=== PATIENT | female | born 1945 | race Caucasian/White ===

== ENCOUNTER 2020-05-06 07:35 | Outpatient (REF) | payer MEDICARE, SELFPAY ==
[2020-05-06 10:36] LABS: Estimated Average Glucose 209 mg/dL; Hemoglobin A1c % 8.9 %
[2020-05-06 10:40] LABS: Alanine Aminotransferase 29 U/L (0-31); Albumin Level 4.2 g/dL (3.5-5.0); Alkaline Phosphatase 54 U/L (39-117); Anion Gap 15 (12-20); Aspartate Amino Transferase 22 U/L (5-31); Bilirubin Total 0.5 mg/dL (0.0-1.0); Blood Urea Nitrogen 26 mg/dL (9-16); Carbon Dioxide 25 mmol/L (22-29); Chloride 103 mmol/L (96-108); Estimated Glomerular Filt Rate 49; Glucose Fasting 249 mg/dL (60-99); Potassium 3.9 mmol/l (3.3-5.1); Sodium 139 mmol/L (135-145); Total Protein 6.5 g/dL (6.5-8.0)
== END 2020-05-06 07:36 | disposition home or self-care (01) ==
LOC: HO.10HDL 07:35
PROVIDERS: Visit Provider Internal Medicine
DX: I10 Essential (primary) hypertension (principal); E11.9 Type 2 diabetes mellitus without complications; E78.00 Pure hypercholesterolemia, unspecified
CPT/HCPCS: 80053; 83036

== ENCOUNTER 2020-06-06 13:04 | Outpatient (REF) | payer MEDICARE, SELFPAY ==
[2020-06-06 13:49] LABS: Glucose Random 219 mg/dL (60-115)
== END 2020-06-06 13:05 | disposition home or self-care (01) ==
LOC: HO.LAB 13:04
PROVIDERS: PCP Internal Medicine; Visit Provider Internal Medicine
DX: E11.9 Type 2 diabetes mellitus without complications (principal)
CPT/HCPCS: 82947

== ENCOUNTER 2020-09-15 07:32 | Outpatient (REF) | payer MEDICARE, SELFPAY ==
[2020-09-15 10:20] LABS: Glucose Urine UA NEG (NEG); Leukocyte Esterase Urine NEG (NEG); Nitrite Urine NEG (NEG); Urine Blood NEG (NEG); Urine Ketones NEG (NEG); Urine Protein NEG (NEG-TRACE)
[2020-09-15 10:25] LABS: Appearance Urine CLEAR; Color Urine YELLOW
[2020-09-15 10:28] LABS: Estimated Average Glucose 197 mg/dL; Hemoglobin A1c % 8.5 %
[2020-09-15 10:50] LABS: Alanine Aminotransferase 26 U/L (0-31); Albumin Level 4.3 g/dL (3.5-5.0); Alkaline Phosphatase 55 U/L (39-117); Anion Gap 15 (12-20); Aspartate Amino Transferase 21 U/L (5-31); Bilirubin Total 0.6 mg/dL (0.0-1.0); Blood Urea Nitrogen 27 mg/dL (9-16); Calcium 9.4 mg/dL (8.4-10.2); Carbon Dioxide 25 mmol/L (22-29); Chloride 101 mmol/L (96-108); Cholesterol 139 mg/dL; Estimated Glomerular Filt Rate 52; Glucose Fasting 269 mg/dL (60-99); HDL Cholesterol 42 mg/dL; LDL Cholesterol Calculated 65 mg/dl; Potassium 4.3 mmol/L (3.3-5.1); Sodium 137 mmol/L (135-145); Total Protein 6.6 g/dL (6.5-8.0); Triglycerides 161 mg/dL
[2020-09-15 11:13] LABS: Vitamin B12 396 pg/mL (200-900)
[2020-09-15 11:26] LABS: Creatinine Urine 89.67 mg/dL
== END 2020-09-15 07:33 | disposition home or self-care (01) ==
LOC: HO.10HDL 07:32
PROVIDERS: Visit Provider Internal Medicine
DX: I10 Essential (primary) hypertension (principal); E11.65 Type 2 diabetes mellitus with hyperglycemia; E78.00 Pure hypercholesterolemia, unspecified
CPT/HCPCS: 36415; 80053; 80061; 81003; 82043; 82607; 83036

== ENCOUNTER 2020-10-17 16:08 | Outpatient (REF) | payer MEDICARE, SELFPAY ==
--- NOTE | ~2020-10-17 | MM_ITS ---
EXAMINATION: MM SCREENING DIGITAL BREAST TOMOSYNTHESIS, BILATERAL CLINICAL INFORMATION: Screening. Asymptomatic. The lifetime risk of breast cancer based on the Tyrer-Cuzick Model is 4%. COMPARISON: Mammography: 07/27/2019, 07/17/2018, 06/27/2017 TECHNIQUE: Digital breast tomosynthesis is performed in both the craniocaudal and mediolateral oblique views along with computer-aided detection (CAD). Synthesized 2D images are generated from the tomosynthesis. FINDINGS: There are scattered areas of fibroglandular density (ACR BI-RADS breast composition Category b). Parenchymal pattern is similar to prior exams. There is no significant mass or architectural abnormality. Scattered round and coarse and some vascular calcifications are again seen. The axilla and skin contours are unremarkable. No significant changes. MM/MM tomosynthesis screening BI IMPRESSION: No mammographic evidence of malignancy. ASSESSMENT: BI-RADS 1: Negative RECOMMENDATION: Routine annual mammography screening. This patient's information was entered into a reminder system with a target due date for their next mammogram.
== END 2020-10-17 16:09 | disposition home or self-care (01) ==
LOC: HO.MAMMO 16:08
PROVIDERS: PCP Internal Medicine; Visit Provider Internal Medicine
DX: Z12.31 Encounter for screening mammogram for malignant neoplasm of breast (principal)
CPT/HCPCS: 77063; 77067

== ENCOUNTER 2021-02-07 06:49 | Day surgery (SDC) | payer MEDICARE, SELFPAY ==
[2021-02-01 08:52] VITALS: BMI 30.9
--- NOTE | 2021-02-06 09:13 | P.CONAN_ITS ---
Documented by User: Calista Pollack NP 02/06/21 11:48 HPI - Anesthesia Eval Consult details Narrative: 75yo F for Colonoscopy Stable at routine cardiac visit 10/2020 [facility] Past Medical History Medical History (Updated 02/07/21 @ 07:47 by Lay Berry MD) COVID-19 vaccine series completed Diabetes HTN (hypertension) Myocardial infarction Surgical History Surgical History (Updated 01/31/21 @ 15:37 by Ruthie Cruz RN) H/O colonoscopy Hx laparoscopic cholecystectomy Hx of heart artery stent Hx of shoulder surgery Social History Social History Patient Tobacco Use Status: Never used Tobacco Use of substances other than those prescribed or required for medical reasons: No Have you been hit, kicked, punched, or otherwise hurt by someone within the past year? If so, by whom?: No Are you DNR?: No Advance Directives Information Provided: No Advance Directives on File: No Recently lost weight without trying: No Eating poorly because of decreased appetite: No Nutrition Risks: No Nutritional Risk Meds Allergies Allergy/AdvReac Type Severity Reaction Status Date / Time bee pollen [bee stings] Allergy Severe Anaphylaxis Verified 02/07/21 07:06 Home Medications Medication Instructions Recorded Confirmed Last Taken Type aspirin 81 mg tablet,delayed 81 mg PO DAILY 01/31/21 02/07/21 01/31/21 History release atenolol 100 mg tablet 100 mg PO DAILY 01/31/21 02/07/21 02/07/21 06:00 History atorvastatin 80 mg tablet 80 mg PO BEDTIME 01/31/21 01/31/21 Unknown History dapagliflozin 10 mg tablet 10 mg PO DAILY 01/31/21 01/31/21 Unknown History () glimepiride 4 mg tablet 8 mg PO DAILY 01/31/21 01/31/21 Unknown History metformin 1,000 mg tablet 1,000 mg PO BID 01/31/21 02/07/21 02/05/21 History valsartan 160 1 tab PO DAILY 01/31/21 01/31/21 Unknown History mg-hydrochlorothiazide 25 mg tablet Exam Exam Date and Time: February 06, 2021 0913 Height,Weight and Vital Signs: Height 5 ft 4 in Weight 81.647 kg Pertinent Lab Results Pertinent Lab Results: Laboratory Tests 01/21/20 09/15/20 07:40 07:40 WBC 5.9 Hgb 13.0 Hct 37.9 Plt Count 201 Sodium 137 Potassium 4.3 Chloride 101 Carbon Dioxide 25 BUN 27 H Creatinine 1.04 Narrative Narrative: Per cardiac note EKG NSR with normal axis, biphasic T waves in 3 and aVF, otherwise unremarkable Assessment and Plan Assessment Anesthesia Assessment: Chart Reviewed Documented by User: Lay Berry MD 02/07/21 07:50 [facility] Past Medical History Medical History (Updated 02/07/21 @ 07:47 by Lay Berry MD) COVID-19 vaccine series completed Diabetes HTN (hypertension) Myocardial infarction Family History Family history of problems with anesthesia: No Surgical History Surgical History (Updated 01/31/21 @ 15:37 by Ruthie Cruz RN) H/O colonoscopy Hx laparoscopic cholecystectomy Hx of heart artery stent Hx of shoulder surgery History of Problems with Anesthesia: No Social History Social History Patient Tobacco Use Status: Never used Tobacco Use of substances other than those prescribed or required for medical reasons: No Have you been hit, kicked, punched, or otherwise hurt by someone within the past year? If so, by whom?: No Are you DNR?: No Advance Directives Information Provided: No Advance Directives on File: No Recently lost weight without trying: No Eating poorly because of decreased appetite: No Nutrition Risks: No Nutritional Risk Meds Allergies Allergy/AdvReac Type Severity Reaction Status Date / Time bee pollen [bee stings] Allergy Severe Anaphylaxis Verified 02/07/21 07:06 Home Medications Medication Instructions Recorded Confirmed Last Taken Type aspirin 81 mg tablet,delayed 81 mg PO DAILY 01/31/21 02/07/21 01/31/21 History release atenolol 100 mg tablet 100 mg PO DAILY 01/31/21 02/07/21 02/07/21 06:00 History atorvastatin 80 mg tablet 80 mg PO BEDTIME 01/31/21 01/31/21 Unknown History dapagliflozin 10 mg tablet 10 mg PO DAILY 01/31/21 01/31/21 Unknown History (Criss) glimepiride 4 mg tablet 8 mg PO DAILY 01/31/21 01/31/21 Unknown History metformin 1,000 mg tablet 1,000 mg PO BID 01/31/21 02/07/21 02/05/21 History valsartan 160 1 tab PO DAILY 01/31/21 01/31/21 Unknown History mg-hydrochlorothiazide 25 mg tablet Exam Height,Weight and Vital Signs: Height 5 ft 4 in Weight 81.647 kg Vital Signs Temp Pulse Resp BP Pulse Ox 02/07/21 07:18 97.3 F 58 16 173/60 H 98 Pertinent Lab Results Pertinent Lab Results: Laboratory Tests 01/21/20 09/15/20 07:40 07:40 WBC 5.9 Hgb 13.0 Hct 37.9 Plt Count 201 Sodium 137 Potassium 4.3 Chloride 101 Carbon Dioxide 25 BUN 27 H Creatinine 1.04 Lab Results 02/07/21 Range/Units 07:16 POC Glucose 228 H (60-115) mg/dL Airway Mallampati Class: II TM Dist: >3cm Neck ROM: Full Loose/Missing/Broken Teeth: No Heart: RRR Lungs: CTAB Assessment and Plan Assessment Anesthesia Assessment: Anesthesia Plan Discussed Final Anesthetic Review Family History of Problems with Anesthesia: No History of Problems with Anesthesia: No NPO: Yes ASA Class: III Final Preanesthetic Review: No Changes in Pt Med Stat, Meds/Allgs Chart Reviewed, Consent Obtained/Reviewed and Anes Risks/Benef Reviewed Patient Risk: Intermediate Procedure Risk: Low Assessment/Block/Sedation in SS: Assess/Block/Sedation-SS Anesthetic Plan Anesthetic Plan: MAC: Disposition: Standard PACU
[2021-02-07 07:18] VITALS: BP 173/60; PULSE 58; RESP 16; TEMP 36.3; O2SAT 98
[2021-02-07 07:20] LABS: Glucose, Whole Blood 228 mg/dL (60-115)
[2021-02-07] MEDS: Lactated Ringers 1,000 ML 100 ML IVCONT (07:35)
--- NOTE | 2021-02-07 08:06 | MHC.SHP ---
Pre-Procedural Eval Section A Date of Service: 02/07/21 Section B Chief Complaint: other fecal abnormalities Details of Present Illness: see h&p no changes Relevant Family History (Specify if Yes): No Relevant Social History: None Present Medications: see Short Stay Collaborative assessment Medical History: No relevant PMH (see h&p) History of Previous Operations: No relevant previous surgery Allergies: Allergies Allergy/AdvReac Type Severity Reaction Status Date / Time bee pollen [bee stings] Allergy Severe Anaphylaxis Verified 02/07/21 07:06 Review of Systems Sugical H&P ROS: Negative: Constitution, Cardiovascular, Respiratory, Neurological, Psychiatric, Hem-Onc, Allergic/Immunologic, Gastrointestinal, Genitourinary, Musculoskeletal, Integumentary, Endocrine and Eyes/Ears/Nose/Throat Exam Surgical H&P Exam: Normal: HEENT, Normal: Heart, Normal: Lungs, Normal: Extremities, Normal: Abdomen, Normal: Skin and Normal: Neurological Plan Diagnosis/Plan: Unchanged I have reviewed the history and physical and performed a pertinent physical examination on my patient. No changes have occurred unless specified.
--- NOTE | 2021-02-07 08:30 | P.BOP_ITS ---
Brief Operative Note Date of Service: 02/07/21 Pre-op diagnosis: heme positive stool Post-op diagnosis: same (colon polyp) Procedure: colonoscopy Surgeon: Artis La Anesthesia: MAC Was an Paint Spray Inspector used for this Procedure?: No Estimated blood loss (mL): 2 Pathology: other (polyp 70 cm) Condition: stable Disposition: PACU
[2021-02-07 08:36] VITALS: BP 101/49; PULSE 57; RESP 16; TEMP 36.1; O2SAT 97
--- NOTE | 2021-02-07 08:46 | PC.NURSE ---
pt up alert jhonatan jaimes at bedside speaking to pt
--- NOTE | 2021-02-07 08:49 | OP_ITS ---
SURGEON: Artis aL MD INDICATIONS: Hemoccult-positive stools. PREOPERATIVE DIAGNOSIS: POSTOPERATIVE DIAGNOSIS: PROCEDURE PERFORMED: Colonoscopy to the terminal ileum with biopsy. ESTIMATED BLOOD LOSS: COMPLICATIONS: ANESTHESIA: ASSISTANTS: SPECIMENS: MEDICATIONS: Monitored anesthesia care. DESCRIPTION OF PROCEDURE: History and physical performed. The risks and benefits of the procedure were explained to the patient. Informed consent was obtained. The patient was placed in left lateral decubitus position. A digital rectal exam was performed and was found to be normal. The Olympus pediatric video colonoscope was introduced into the rectum and advanced to the cecum without difficulty. The cecum was identified by transillumination, palpation, and identification of ileocecal valve. Examination was performed and the scope was removed. She tolerated the procedure well and was taken to recovery area in stable condition. FINDINGS: The terminal ileum was examined and appeared normal. The visualized colonic mucosa was normal. There was some liquid stool coating the mucosa, which was washed and suctioned. This did limit the examination for detection of small polyps. A single polyp measuring approximately 3 to 4 mm was identified at 70 cm from the anal verge and removed with a biopsy forceps. No other polyps were seen. Retroflexed examination showed internal hemorrhoids that were moderate in size. IMPRESSION: Colon polyp. RECOMMENDATIONS: 1. Follow up the biopsy results. 2. Further screening is optional based on age. MD NIKKI Kramer/LAKESHIA / [id number]
[2021-02-07 08:52] VITALS: BP 157/67; PULSE 60; RESP 18; TEMP 36.6; O2SAT 98
== END 2021-02-07 09:30 | disposition home or self-care (01) ==
PROVIDERS: PCP Internal Medicine; Visit Provider Internal Medicine Gastroenterology
PROC: 0DJD8ZZ Inspection of Lower Intestinal Tract, Via Natural or Artificial Opening Endoscopic (ICD-10-PCS; CPT 45378; principal; 2021-02-07 08:10)
DX: R19.5 Other fecal abnormalities (principal); Z86.010 Personal history of colon polyps; D12.4 Benign neoplasm of descending colon; K64.8 Other hemorrhoids; I10 Essential (primary) hypertension; E11.9 Type 2 diabetes mellitus without complications; I25.10 Atherosclerotic heart disease of native coronary artery without angina pectoris; Z98.61 Coronary angioplasty status; I25.2 Old myocardial infarction; Z79.84 Long term (current) use of oral hypoglycemic drugs; Z79.82 Long term (current) use of aspirin; Z79.899 Other long term (current) drug therapy
CPT/HCPCS: 45380; 82947; 88305

== ENCOUNTER 2021-10-19 10:51 | Outpatient (REF) | payer MEDICARE, SELFPAY ==
--- NOTE | ~2021-10-19 | MM_ITS ---
EXAMINATION: MM SCREENING DIGITAL BREAST TOMOSYNTHESIS, BILATERAL CLINICAL INFORMATION: Screening. Asymptomatic. The lifetime risk of breast cancer based on the Tyrer-Cuzick Model is 3.4%. COMPARISON: Mammography: 10/17/2020 and studies dating back to 03/04/2012. TECHNIQUE: Digital breast tomosynthesis is performed in both the craniocaudal and mediolateral oblique views along with computer-aided detection (CAD). Synthesized 2D images are generated from the tomosynthesis. FINDINGS: There are scattered areas of fibroglandular density (ACR BI-RADS breast composition category B). There are no new significant masses, abnormal calcifications, or other abnormalities. There is a stable lobular circumscribed density about the central upper outer aspect of the right breast which appears to contain some calcifications and likely represents a small cyst with calcifications which appear dependent on mediolateral oblique projection. MM/MM tomosynthesis screening BI IMPRESSION: There are no significant changes from prior study. ASSESSMENT: BI-RADS 2: Benign RECOMMENDATION: Routine annual mammography screening. This patient's information was entered into a reminder system with a target due date for their next mammogram.
== END 2021-10-19 10:52 | disposition home or self-care (01) ==
LOC: HO.MAMMO 10:51
PROVIDERS: PCP Internal Medicine; Visit Provider Internal Medicine
DX: Z12.31 Encounter for screening mammogram for malignant neoplasm of breast (principal)
CPT/HCPCS: 77063; 77067

== ENCOUNTER 2021-12-12 11:00 | Outpatient (RCR) | payer MEDICARE, SELFPAY ==
[2021-12-06 10:02] VITALS: BP 155/69; PULSE 61
== END 2022-01-19 08:15 | disposition home or self-care (01) ==
LOC: HO.PT 11:00
PROVIDERS: PCP Internal Medicine; Visit Provider Internal Medicine
DX: R42 Dizziness and giddiness (principal)
CPT/HCPCS: 95992; 97161

== ENCOUNTER 2022-11-06 11:25 | Outpatient (REF) | payer MEDICARE, SELFPAY ==
--- NOTE | ~2022-11-06 | MM_ITS ---
EXAMINATION: MM SCREENING DIGITAL BREAST TOMOSYNTHESIS, BILATERAL CLINICAL INFORMATION: Screening. Asymptomatic. The lifetime risk of breast cancer based on the Tyrer-Cuzick Model is 4%. COMPARISON: Mammography: 10/19/2021, 10/17/2020, 07/27/2019 TECHNIQUE: Digital breast tomosynthesis is performed in both the craniocaudal and mediolateral oblique views along with computer-aided detection (CAD). Synthesized 2D images are generated from the tomosynthesis. FINDINGS: There are scattered areas of fibroglandular density (ACR BI-RADS breast composition Category b). There are no significant masses, abnormal calcifications, or other abnormalities. Parenchymal pattern is similar to prior studies and there is no developing density or architectural abnormality. Circumscribed small macrolobulated nodule again seen central upper outer right breast. There is scattered minor asymmetries similar to prior studies. Again, there are scattered bilateral round, rim, and vascular calcifications. The axilla and skin contours are unremarkable. MM/MM tomosynthesis screening BI IMPRESSION: No mammographic evidence of malignancy. ASSESSMENT: BI-RADS 2: Benign RECOMMENDATION: Routine annual mammography screening. This patient's information was entered into a reminder system with a target due date for their next mammogram.
== END 2022-11-06 11:26 | disposition home or self-care (01) ==
LOC: HO.MAMMO 11:25
PROVIDERS: PCP Internal Medicine; Visit Provider Internal Medicine
DX: Z12.31 Encounter for screening mammogram for malignant neoplasm of breast (principal)
CPT/HCPCS: 77063; 77067

== ENCOUNTER 2023-03-13 14:00 | Outpatient (RCR) | payer MEDICARE, SELFPAY | END 2023-04-12 13:00 | disposition home or self-care (01) | LOC: HO.PT 14:00 | PROVIDERS: PCP Internal Medicine; Visit Provider Internal Medicine | DX: R42 Dizziness and giddiness (principal) | CPT/HCPCS: 95992; 97161 ==

== ENCOUNTER 2023-11-27 12:39 | Outpatient (REF) | payer MEDICARE, SELFPAY ==
--- NOTE | ~2023-11-27 | MM_ITS ---
EXAMINATION: MM SCREENING DIGITAL BREAST TOMOSYNTHESIS, BILATERAL CLINICAL INFORMATION: Screening. Asymptomatic. COMPARISON: Mammography: 11/06/2022, 10/19/2021, 10/17/2020, 07/27/2019 TECHNIQUE: Digital breast tomosynthesis is performed in both the craniocaudal and mediolateral oblique views along with computer-aided detection (CAD). Synthesized 2D images are generated from the tomosynthesis. An added full-field 3-D left MLO view was obtained. FINDINGS: There are scattered areas of fibroglandular density (ACR BI-RADS breast composition Category b). There are benign vascular and benign type scattered calcifications in both breasts. Circumscribed small macrolobulated nodule again seen central upper outer right breast, stable and benign. Oval nodule along the pectoralis border left breast MLO view along the nipple line is also stable and most likely a lymph node. Minor asymmetries are noted scattered in both breasts, unchanged from prior exams. No suspicious masses, suspicious calcifications, or regions of architectural distortion in either breast. No suspicious skin or axillary findings. MM/MM tomosynthesis screening BI IMPRESSION: No mammographic evidence of malignancy. Stable examination. ASSESSMENT: BI-RADS BI-RADS 2 - Benign Findings RECOMMENDATION: Routine annual mammography screening. 1 year F/U This examination should not preclude the clinical evaluation of a suspicious palpable abnormality. This patient's information was entered into a reminder system with a target due date for their next mammogram.
== END 2023-11-27 12:40 | disposition home or self-care (01) ==
LOC: HO.MAMMO 12:39
PROVIDERS: PCP Internal Medicine; Visit Provider Internal Medicine
DX: Z12.31 Encounter for screening mammogram for malignant neoplasm of breast (principal)
CPT/HCPCS: 77063; 77067

== ENCOUNTER → 2023-11-27 13:30 | Outpatient (BNV) | payer MEDICARE, SELFPAY | PROVIDERS: PCP Internal Medicine; Visit Provider Radiology Diagnostic Radiology | DX: Z12.31 Encounter for screening mammogram for malignant neoplasm of breast (principal) | CPT/HCPCS: 77063; 77067 ==

== ENCOUNTER 2024-03-20 04:13 | Emergency (ER) | payer MEDICARE, SELFPAY ==
--- NOTE | ~2024-03-20 | CT_ITS ---
EXAMINATION: CT CERVICAL SPINE WITHOUT CONTRAST CLINICAL INFORMATION: Neck pain. Right sided. COMPARISON: None available. TECHNIQUE: Unenhanced CT of the cervical spine with multiple coronal and sagittal reformatted images. This CT examination was performed using dose optimization techniques as appropriate, variously including the following: *Automated exposure control *Adjustment of mA and/or kV according to patient size (this includes techniques or standardized protocols for targeted exams where dose is matched to indication/reason for exam; i.e. extremities or head) *Use of iterative reconstruction technique DLP: 541 mGy-cm FINDINGS: The visualized lung apices are clear. No fractures or acute appearing subluxations are identified. A low-density focus likely representing an intraosseous hemangioma is noted in the C5 vertebral body. Diffuse osteopenia is present. No prevertebral fluid collections or soft tissue inflammatory changes noted. Partial visualization made of a mild posterior broad-based disc-osteophyte complex C4-C5. Partial visualization is made of a mild posterior broad-based disc-osteophyte complex C5-C6. No facet arthropathic changes identified. Normal appearance of the thyroid. Dense bilateral carotid bulb calcific atherosclerotic plaques. Within the entire visualized intracranial structures, ventricles and sulci are grossly normal in size and configuration. No focal parenchymal lesions the brain or abnormal extra-axial fluid collections noted. CT/CT cervical spine wo IV con IMPRESSION: 1. No acute abnormalities identified. 2. Dense bilateral carotid bulb calcific atherosclerosis. 3. Diffuse osteopenia. 4. Partial visualization of mild posterior broad-based disc-osteophyte complexes at C4-C5 and C5-C6. 5. Electronically signed by: Jean Marie Valencia MD 03/20/2024 06:48 AM EDT
--- NOTE | ~2024-03-20 | CT_ITS ---
EXAMINATION: CT ANGIOGRAM CHEST CLINICAL INFORMATION: Chest pain into back. COMPARISON: None available. TECHNIQUE: Multiple axial images were obtained through the chest after the administration of 70 mL of Omnipaque 350 intravenous contrast. Extensive vascular post-processing including two-dimensional and three-dimensional reformatted images were created and reviewed on an independent workstation. This CT examination was performed using dose optimization techniques as appropriate, variously including the following: *Automated exposure control *Adjustment of mA and/or kV according to patient size (this includes techniques or standardized protocols for targeted exams where dose is matched to indication/reason for exam; i.e. extremities or head) *Use of iterative reconstruction technique DLP: 277 mGy-cm FINDINGS: VASCULAR: 1. Ascending thoracic aorta: Unremarkable. 2. Thoracic aortic arch: Unremarkable. 3. Descending thoracic aorta: Unremarkable. NONVASCULAR: Lungs: The lungs are clear with no evidence of inflammation or nodules. Mediastinum: Heart appears normal in size. No pericardial effusion. Calcified subcarinal lymph node. No hilar or mediastinal lymphadenopathy by size criteria. Unremarkable appearance of the thyroid. Coronary Arterial Calcification: Severe. Pericardium/Pleura: There is no significant effusion. No pleural mass or thickening. Chest Wall/Axilla: Unremarkable. Upper Abdomen: Status post cholecystectomy. Osseous Structures: Decreased bone mineral density. T8 hemangioma. Mild degenerative changes of the shoulders. CT/CT angio chest aorta IMPRESSION: Unremarkable appearance of the aorta. Severe coronary arterial calcification. Additional findings, as above. Electronically signed by: Aristeo Hawkins MD 03/20/2024 09:22 AM EDT
--- NOTE | ~2024-03-20 | XR_ITS ---
EXAMINATION: XR CHEST CLINICAL INFORMATION: Pain. COMPARISON: None available. TECHNIQUE: Frontal view of the chest was obtained. FINDINGS: Normal appearance of the cardiomediastinal structures. No effusions or pneumothoraces. Normal pattern of pulmonary vasculature. No focal pulmonary consolidation. XR/XR chest 1V IMPRESSION: No acute cardia pulmonary abnormalities. Electronically signed by: Jean Marie Valencia MD 03/20/2024 05:26 AM EDT
[2024-03-20 04:22] VITALS: BP 165/62; PULSE 69; RESP 16; TEMP 36.2; O2SAT 97; BMI 31.9
--- NOTE | 2024-03-20 04:29 | ECG_ITS ---
Test Reason : CHEST PAIN Blood Pressure : / mmHG Vent. Rate : 062 BPM Atrial Rate : 062 BPM P-R Int : 168 ms QRS Dur : 082 ms QT Int : 450 ms P-R-T Axes : -12 030 007 degrees QTc Int : 456 ms Normal sinus rhythm Normal ECG When compared with ECG of 04-FEB-2006 12:24, No significant change was found Referred By: Jayna Qiu Electronically Signed By:LIGIA CARREON
--- NOTE | 2024-03-20 04:47 | ED_ITS ---
HPI - General Adult General Chief complaint: General Medical Stated complaint: body pain since COVID shot Time Seen by Provider: 03/20/24 04:24 Source: patient and old records reviewed Mode of arrival: ambulatory Limitations: no limitations History of Present Illness ED Provider: JALEN PHILIPPE narrative: 78 yo female with PMH of CAD s/p stent, HTN, DM here with c/o R shoulder pain - started the day after her covid shot on 03/15. She notes she did have a bug bite note sure what it was 2 weeks ago in [place] on that R shoulder. Now since COVID shot she has R sided shoulder, neck, upper back, upper chest pain. She cannot get comfortable laying on that side. No fevers, cough, rash MD complaint: shoulder/neck/chest/back pain Onset (ago): day(s) (11/12) Location: neck, right and upper extremity Radiation: back Severity: moderate Quality: aching Pain Consistency: constant Relieving factors: none Exacerbating factors: movement Associated symptoms: denies other symptoms Treatments prior to arrival: none Related Data Home Medications ?Medication ?Instructions ?Recorded ?Confirmed aspirin 81 mg tablet,delayed 81 mg PO DAILY 01/31/21 02/07/21 release atenolol 100 mg tablet 100 mg PO DAILY 01/31/21 02/07/21 atorvastatin 80 mg tablet 80 mg PO BEDTIME 01/31/21 01/31/21 dapagliflozin propanediol 10 mg 10 mg PO DAILY 01/31/21 01/31/21 tablet (Farxiga) glimepiride 4 mg tablet 8 mg PO DAILY 01/31/21 01/31/21 metformin 1,000 mg tablet 1,000 mg PO BID 01/31/21 02/07/21 valsartan 160 1 tab PO DAILY 01/31/21 01/31/21 mg-hydrochlorothiazide 25 mg tablet Allergies Allergy/AdvReac Type Severity Reaction Status Date / Time bee pollen [bee stings] Allergy Severe Anaphylaxis Verified 03/20/24 04:23 Review of Systems 2 Review of Systems: Constitutional : No Fever, No Chills ENT/Mouth : No Ear Pain, No Hoarseness, No sore throat Eyes: No Eye Pain, No Swelling, No Redness, No Foreign Body Cardiovascular : No Chest Pain, No SOB Respiratory : No Cough, No Dyspnea Gastrointestinal : No Nausea, No Vomiting, No Diarrhea, No abdominal Pain Genitourinary : No Dysuria, No Hematuria Musculoskeletal : positive joint pain, No Myalgias, No Joint Swelling, pos neck pain Skin : No Skin lacerations, No rash Neuro : No Weakness, No Numbness, No Loss of Consciousness, No Dizziness, No Headache All other systems reviewed and are negative [facility] Past Medical History Attestation statement: The following information was validated with the patient. Source: old records reviewed Medical History COVID-19 vaccine series completed Myocardial infarction HTN (hypertension) Diabetes Surgical History Hx laparoscopic cholecystectomy Hx of shoulder surgery Hx of heart artery stent H/O colonoscopy Social History Social History Alcohol intake: current Alcohol intake frequency: holidays/special occasions only Comment: iv d/brennen Patient Tobacco Use Status: Never used Tobacco Smoked in Last 30 Days: No Use of substances other than those prescribed or required for medical reasons: No Advance Directives: Yes Advance Directives Information Provided: No Advance Directives on File: No Do you have a plan to hurt others: No Plan Physical Exam ED Vital Signs: Vital Signs - 24 hr 03/20/24 04:22 03/20/24 05:12 03/20/24 06:45 Temperature 97.1 F 98.3 F Pulse Rate 69 66 64 Respiratory Rate 16 18 14 Blood Pressure 165/62 H 137/54 L 153/45 H Pulse Oximetry 97 96 97 Oxygen Delivery Method Room Air Room Air Room Air BMI result Body Mass Index 31.9 Appearance: Alert. Oriented X3. No acute distress. Eyes: Pupils equal, round and reactive to light. ENT: Pharynx normal. Neck: Normal inspection. no mass felt, no bruit, R lateral neck pain ttp along lateral aspect reproduces pain CVS: Normal heart rate and rhythm. Pulses normal. Respiratory: No respiratory distress. Breath sounds normal. Abdomen: Soft and non-tender. Skin: Skin warm and dry. Normal skin color. Normal skin turgor. healed old bug bite posterior R shoulder - no erythematous ring Extremities: No lower extremity edema. No calf ttp Neuro: Oriented X 3. No motor deficit. No sensory deficit. Course Course Course Narrative: when asked patient denies pain in central chest radiating to the back but her symptoms are odd will obtain CTA for dissection Reevaluation(s) Reevaluation #1: signed out to Dr. Hernandez pending CT scan/UA Medications Administered Discontinued Medications Generic Name Dose Route Start Last Admin Trade Name Fina PRN Reason Stop Dose Admin Morphine Sulfate 2 mg 03/20/24 04:53 03/20/24 05:08 Morphine Sulfate 2 Mg/Ml Cartridge IVPUSH 03/20/24 04:54 2 mg ONCE ONE Administration Protocol Medical Decision Making Medical Decision Making [facility] Narrative: 78 yo female with PMH of CAD s/p stent, HTN, DM here with c/o R neck/shoulder and upper back pain - recent R shoulder pain bite in [place] but no signs of infection or joint effusion at this time it did all start after covid shot - will obtain labs, inflammatory markers, CXR, ddimer and EKG/troponin in case of atypical presentation and her recent trip to [place]. Pain is reproduceable. She will also get CT scan of cervical spine given the pain - no mass or bruit felt. Iv morphine for pain ordered. Differential Diagnosis Differential Diagnoses: The differential diagnosis associated with the presentation includes MSK pain, arthralgia, tick borne, atypical pain, no signs of zoster Admission/Observation Consideration of admission/observation: Escalation of care including admission/observation considered felt much better after morphine but still c/o some back pain with laying down no rash seen denies urinary symptoms EKG, trop negative, ddimer negative CT scan of neck disc bulge but no RUE numbness has R neck radiculopathy Lab Data [facility] Lab Attestation statement: I reviewed the patient's lab results. 03/20/24 04:51 03/20/24 04:51 Labs: Lab Results 03/20/24 03/20/24 Range/Units 04:51 04:56 WBC 6.8 (4.8-10.8) X10*3/uL RBC 3.92 L (4.20-5.50) X10*6/uL Hgb 13.3 (12.0-16.0) g/dl Hct 36.7 L (37.0-47.0) % MCV 93.6 (80.0-98.0) fL MCH 33.9 H (27.0-33.0) pg MCHC 36.2 H (31.0-35.0) g/dl RDW 11.6 (11.0-16.0) % Plt Count 181 (160-400) X10*3/uL MPV 9.9 (9.4-12.3) fL Immature Gran % (Auto) 0.4 (0.0-0.4) % Neut % (Auto) 72.9 (45-73) % Lymph % (Auto) 16.4 L (20-40) % [place] % (Auto) 7.8 (2-11) % Eos % (Auto) 2.1 (0-4) % Baso % (Auto) 0.4 (0-2) % Lymph # (Auto) 1.1 L (1.2-4.9) X10*3/uL [place] # (Auto) 0.5 (0.1-1.2) X10*3/uL Eos # (Auto) 0.1 (0.0-0.4) X10*3/uL Baso # (Auto) 0.0 (0.0-0.2) X10*3/uL Abs Immat Gran (auto) 0.03 (0.00-0.03) X10*3/uL Absolute Neuts (auto) 4.9 (2.0-8.3) x10*3/uL Absolute Nucleated RBC 0.000 (0.0-0.012) X10*3/uL Nucleated RBC % (auto) 0.0 (0.0-0.2) /100WBC ESR 8 (0-20) MM/HR D-Dimer High Sensitivty 190 NG/ML Sodium 134 L (135-145) mmol/L Potassium 4.4 (3.3-5.1) mmol/L Chloride 102 (96-108) mmol/L Carbon Dioxide 22 (22-29) mmol/L Anion Gap 14 (12-20) BUN 16 (9-16) mg/dL Creatinine 0.84 (0.5-1.4) mg/dL Estim Creat Clear Calc 56.7 Estimated GFR > 60 Random Glucose 241 H (60-115) mg/dL Calcium 9.4 (8.4-10.2) mg/dL Total Creatine Kinase 91 (26-140) U/L Troponin I High Sens < 2.7 (<3.5-17.0) ng/L C-Reactive Protein < 0.10 (< or = 0.50) mg/dL COVID-19 (TOÑA) Negative (Negative) COVID-19 Clin Com See Note Independent Interpretation I performed an independent interpretation of an: EKG, Plain X-Ray (normal ) and CT Scan (disc bulge) Interpretation: Rate: 62 Rhythm: NSR Hegins: normal Normal P waves. Normal BENITO. Normal QRS complex. ST T wave : normal no CASANDRA qTC: 456 prior studies: no acute ischemia The study has been interpreted contemporaneously by me. . Radiology Impression Discussion of test interpretation with radiology: I have reviewed the radiologist's reading. External Record Review External record reviewed: Office record Prescription Management I considered prescription management with: Pain Medication Discharge Plan Discharge Clinical Impression: Cervical radiculopathy, Back pain Patient Disposition: Still a Patient Instructions: Cervical Radiculopathy (ED), Back Pain (ED) Additional Instructions: EKG and blood clot test/heart tests for heart attack negative labs reassuring CT scan of neck shows disc bulge in neck from C4- C6 which could be the cause of your pain Chest xray is normal tick panel sent off and lyme test sent off return for any worsening symptoms or concerns, follow up with your doctor Prescriptions: No Action atorvastatin 80 mg Tablet 80 mg PO BEDTIME atenolol 100 mg Tablet 100 mg PO DAILY aspirin 81 mg Tablet,Delayed Release (Dr/Ec) 81 mg PO DAILY metformin 1,000 mg Tablet 1,000 mg PO BID glimepiride 4 mg Tablet 8 mg PO DAILY valsartan-hydrochlorothiazide 160-25 mg Tablet 1 tab PO DAILY Farxiga 10 mg Tablet 10 mg PO DAILY Print Language: Sudanese
[2024-03-20 05:00] LABS: MANUAL DIFF FLAG NO
[2024-03-20 05:01] LABS: Basophils Percent Auto 0.4 % (0-2); Eosinophils Absolute Auto 0.1 X10*3/uL (0.0-0.4); Eosinophils Percent Auto 2.1 % (0-4); Hematocrit 36.7 % (37.0-47.0); Hemoglobin 13.3 g/dl (12.0-16.0); Imm Gran Abs Auto 0.03 X10*3/uL (0.00-0.03); Imm Gran Pct Auto 0.4 % (0.0-0.4); Lymphocytes Absolute Auto 1.1 X10*3/uL (1.2-4.9); Lymphocytes Percent Auto 16.4 % (20-40); Mean Corpuscular HGB Conc 36.2 g/dl (31.0-35.0); Mean Corpuscular Hemoglobin 33.9 pg (27.0-33.0); Mean Corpuscular Volume 93.6 fL (80.0-98.0); Mean Platelet Volume 9.9 fL (9.4-12.3); Monocytes Absolute Auto 0.5 X10*3/uL (0.1-1.2); Monocytes Percent Auto 7.8 % (2-11); Neutrophils Absolute Auto 4.9 x10*3/uL (2.0-8.3); Neutrophils Percent Auto 72.9 % (45-73); Platelet Count 181 X10*3/uL (160-400); Red Blood Count 3.92 X10*6/uL (4.20-5.50); Red Cell Distribution Width 11.6 % (11.0-16.0); White Blood Count 6.8 X10*3/uL (4.8-10.8)
[2024-03-20] MEDS: Morphine Sulfate 2 MG/ML CARTRIDGE IVPUSH (05:08)
[2024-03-20 05:12] VITALS: BP 137/54; PULSE 66; RESP 18; O2SAT 96
[2024-03-20 05:13] LABS: Anion Gap 14 (12-20); Blood Urea Nitrogen 16 mg/dL (9-16); C Reactive Protein < 0.10 mg/dL (< or = 0.50); Calcium 9.4 mg/dL (8.4-10.2); Carbon Dioxide 22 mmol/L (22-29); Chloride 102 mmol/L (96-108); Creatinine Clr Calc Pharmacy 56.7; Estimated Glomerular Filt Rate > 60; Glucose Random 241 mg/dL (60-115); Potassium 4.4 mmol/L (3.3-5.1); Sodium 134 mmol/L (135-145)
[2024-03-20 05:16] LABS: COVID-19 Test Negative (Negative); IDNOW Serial# 152EDE1D
[2024-03-20 05:20] LABS: D Dimer High Sensitivity 190 NG/ML
[2024-03-20 05:22] LABS: Troponin-I High Sensitivity < 2.7 ng/L (<3.5-17.0)
[2024-03-20 05:36] LABS: Erythrocyte Sedimentation Rate 8 MM/HR (0-20)
[2024-03-20 06:45] VITALS: BP 153/45; PULSE 64; RESP 14; TEMP 36.8; O2SAT 97
[2024-03-20] MEDS: iohexoL 350 MG/ML 100 ML INFUS..BTL IV (07:45)
[2024-03-20 08:02] LABS: Appearance Urine Clear; Color Urine Yellow; Glucose Urine UA Negative (Negative); Leukocyte Esterase Urine Small (1+) (Negative); Nitrite Urine Negative (Negative); PH 5.5 (5.0-9.0); Specific Gravity - Urine 1.015 (1.005-1.025); UMIC TRIGGER UACC YES; Urine Blood Negative (Negative); Urine Ketones Negative (Negative); Urine Protein Negative (Neg-Trace)
[2024-03-20 08:10] LABS: Bacteria Urine None Seen (None Seen); Hyaline Casts Urine 0-2 /LPF (0-2); RBC Urine 0-2 /HPF (0-2); Squamous Epithelial Cell Urine 0-2 /HPF (0-2); UACC Culture Trigger YES; WBC Urine 0-5 /HPF (0-5)
[2024-03-20 08:55] LABS: Glucose, Whole Blood 211 mg/dL (60-115)
[2024-03-20 09:52] VITALS: BP 169/43; PULSE 68; RESP 16; TEMP 36.6; O2SAT 98
[2024-03-20 10:05] VITALS: BP 169/43; PULSE 68; RESP 16; TEMP 36.6; O2SAT 98
[2024-03-23 18:18] LABS: Lyme Blot 7.79 index
[2024-03-23 23:23] LABS: A. Phagocytphilium DNA,RT-PCR NOT DETECTED (NOT DETECTED); Babesia Microti DNA, RT-PCR NOT DETECTED (NOT DETECTED); Borrelia Miyamotoi,DNA RT-PCR NOT DETECTED (NOT DETECTED); E.Chaffeensis DNA RT-PCR NOT DETECTED (NOT DETECTED); Lyme(Borrelia ssp)DNA RT-PCR NOT DETECTED (NOT DETECTED)
[2024-03-25 11:00] LABS: Lyme Abs Screen POSITIVE
[2024-03-25 22:09] LABS: 18 KD (IgG) Band REACTIVE; 23 KD (IgG) Band NON-REACTIVE; 23 KD (IgM) Band NON-REACTIVE; 28 KD (IgG) Band REACTIVE; 30 KD (IgG) Band REACTIVE; 39 KD (IgM) Band NON-REACTIVE; 39KD (IgG) Band REACTIVE; 41 KD (IgM) Band NON-REACTIVE; 41KD (IgG) Band REACTIVE; 45 KD (IgG) Band REACTIVE; 58 KD (IgG) Band REACTIVE; 66 KD (IgG) Band REACTIVE; 93 KD (IgG) Band REACTIVE; Lyme IgG Blot Interp POSITIVE (NEGATIVE); Lyme IgM Blot Interp NEGATIVE (NEGATIVE)
== END 2024-03-20 10:05 | disposition home or self-care (01) ==
PROVIDERS: Emergency Medicine; Emergency Provider Student in an Organized Health Care Education/Training Program; PCP Internal Medicine
DX: A69.20 Lyme disease, unspecified (principal); M54.12 Radiculopathy, cervical region; M54.6 Pain in thoracic spine; Z11.52 Encounter for screening for COVID-19; E11.9 Type 2 diabetes mellitus without complications; I10 Essential (primary) hypertension; Z79.82 Long term (current) use of aspirin; Z79.02 Long term (current) use of antithrombotics/antiplatelets; Z79.84 Long term (current) use of oral hypoglycemic drugs
CPT/HCPCS: 36415; 71045; 71275; 72125; 80048; 81001; 81003; 82550; 82947; 84484; 85025; 85379; 85652; 86140; 86617; 86618; 87086; 87468; 87469; 87478; 87484; 87635; 87798; 93005; 96374; 99284; 99285; J2270; Q9967

== ENCOUNTER 2025-01-26 12:01 | Outpatient (REF) | payer MEDICARE, SELFPAY ==
--- OUTSIDE RECORDS SUMMARY | 2025-01-26 12:56 | XMS_ITS | Clinical Summary ---
Author Organization [facility] Address [address] [place] [phone] Phone Care Team Providers Care Long Term Care Social Worker Name Role Phone Bandar Mendenhall MD Primary Care Provider Hilaria Serrano MD Unavailable [phone] Dostal, Hakan OD Unavailable Artis La MD Unavailable Allergies Active Allergy Reactions Criticality Noted Date Comments Bee Pollen Unknown,Swelling 05/22/2021 Allergic to Bee stings Dapagliflozin Dizziness 11/20/2021 Medications aspirin 81 mg chewable tablet Take 81 mg by mouth daily. Active flaxseed-omega3,6,9-fa tty acid 1,200-540-132 mg CapIndications:one daily Take 1 tablet by mouth daily. Indications: one daily Active prednisoLONE acetate (PRED FORTE) 1 % ophthalmic suspension Place 1 drop into the right eye as needed. Every 3rd-4th day. Active valACYclovir (VALTREX) 500 MG tablet Take 500 mg by mouth daily. Active lancets 28 gauge Misc 1 each by Miscellaneous route every morning. 100 each 3 2017 Active Additional Information Patient not taking.Reported on 09/25/2024 calcium carb/D3/magnesium/zinc (CALCIUM CARB-D3-MAG [id number]) [phone] hy-iuio-zh-mg Tab Take 1 tablet by mouth daily. Active FREESTYLE FREEDOM kitIndications:Uncontr olled type 2 diabetes mellitus Use as instructed dx: E11.65 Type 2 DM 1 kit 1 2020 Active Additional Information Patient not taking.Reported on 09/25/2024 blood sugar diagnostic (FREESTYLE LITE) Strp stripsIndications:Type 2 diabetes mellitus with hyperglycemia, without long-term current use of insulin USE 1 STRIP TO CHECK GLUCOSE IN THE MORNING 100 strip 3 2022 Active Additional Information Patient not taking.Reported on 09/25/2024 cholecalciferol (VITAMIN D3) 25 MCG (1,000 unit) tabletIndications:Camille min D deficiency Take 1 tablet (1,000 Units total) by mouth daily. 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 TAKE 1 TABLET BY MOUTH TWICE DAILY 180 tablet 3 2024 Active valsartan-hydroCHLOROt hiazide (DIOVAN-HCT) 320-25 mg per tablet TAKE 1 TABLET BY MOUTH DAILY 90 tablet 3 2024 Active JANUVIA 50 mg tabletIndications:Unco ntrolled type 2 diabetes mellitus with hyperglycemia TAKE 1 TABLET BY MOUTH DAILY 90 tablet 3 2024 Active metFORMIN (GLUCOPHAGE-XR) 500 MG 24 hr tabletIndications:Poor ly controlled type 2 diabetes mellitus TAKE 2 TABLETS BY MOUTH TWICE DAILY 360 tablet 3 2024 Active atorvastatin (LIPITOR) 80 MG tabletIndications:Pure hypercholesterolemia TAKE 1 TABLET BY MOUTH ONCE DAILY 90 tablet 3 2024 Active atenolol (TENORMIN) 100 MG tabletIndications:Esse ntial hypertension TAKE 1 TABLET BY MOUTH DAILY 90 tablet 3 2024 Active atenolol (TENORMIN) 100 MG tabletIndications:Esse ntial hypertension take 1 tablet by mouth daily 90 tablet 3 01/12 Discontinued atorvastatin (LIPITOR) 80 MG tabletIndications:Pure hypercholesterolemia TAKE 1 TABLET BY MOUTH ONCE DAILY 90 tablet 3 01/12 Discontinued Active Problems Problem Noted Date Diagnosed Date Lyme disease 03/31/2024 Assessment & Plan (03/31/2024 12:54 PM EDT): Patient diagnosed with Lyme disease at ER visit. Patient notes that she still continues with the fatigue but the pain has slowly improved. Continue doxycycline 100 mg p.o. twice daily x 21 days Patient was advised to use sunscreen if out in the sun while on doxycycline. Patient was also advised if she is in flower gardens and or in her vegetable garden to use a DEET bug spray for repellent Essential hypertension 05/30/2017 Assessment & Plan (09/10/2022 1:19 PM EDT): See above plan. She will increase her Diovan dosage. She will continue to check her blood pressure at home. Assessment & Plan (05/22/2021 11:29 AM EST): Blood pressure is well controlled today 128/66. Her medications include atenolol 100 mg daily, valsartan 160 mg daily she will remain on these medications without change. Assessment & Plan (04/19/2020 3:46 PM EST): I have asked her to begin to monitor this at home and to report systolics consistently 140 or above Assessment & Plan (03/09/2019 11:36 AM EDT): Fair control. No changes. Assessment & Plan (08/26/2018 4:30 PM EDT): Well-controlled. Her labs are somewhat bizarre as she has listed a creatinine of 9.4 which I do not think is possible. She is going to have a metabolic profile repeated today just to reassure me that this was an error. Assessment & Plan (12/20/2017 10:57 AM EDT): Controlled on present therapy. Pure hypercholesterolemia 05/30/2017 Assessment & Plan (09/10/2022 1:19 PM EDT): Lipids are excellent on her current dose of statin. Assessment & Plan (05/22/2021 11:31 AM EST): Continue atorvastatin 80 mg daily. Assessment & Plan (04/19/2020 3:47 PM EST): I suggested a change to rosuvastatin at 40 but she prefers remaining where she is. I will have another set drawn in 6 months. She will visit with one of my colleagues as I will have retired. Assessment & Plan (03/09/2019 11:36 AM EDT): LDL at goal. Assessment & Plan (08/26/2018 4:31 PM EDT): LDL was in the 80s. She is agreed to increase her atorvastatin to 80 mg a day and I know she is due for labs in October and will have her lipid profile repeated then. Assessment & Plan (12/20/2017 10:57 AM EDT): Last lipid profile I can locate was in October 2016 so I've asked her to have that repeated. Recent creatinine of 0.9. LFTs were normal. She remains on atorvastatin at 40 mg. Uncontrolled type 2 diabetes mellitus 05/30/2017 Coronary artery disease 06/17/1995 Overview (12/20/2017): Had single vessel LAD disease in 1995. Had angioplasty with stent by Dr. Bran and Dr. Briones Assessment & Plan (09/10/2022 1:19 PM EDT): She has a history of single-vessel LAD disease which was diagnosed in 1995. She had an angioplasty with stenting at the time. Since then, she has done well. We will continue Dr. Adorno her risk factors. Blood pressure in the office today is a little bit elevated. She tells me that generally, her blood pressures are usually at least 140s systolic. I have suggested that we go up on her Diovan to 360 combined with HCTZ 25 mg. She will continue to check her blood pressures regularly. I have asked her to call me if there is no improvement. Otherwise, follow-up in 1 year. Assessment & Plan (05/22/2021 11:31 AM EST): She has a past medical history for single-vessel LAD disease in 1995 and had an angioplasty with stent by Dr. rBan and Dr. Briones. She has been asymptomatic since that time. Her medications include aspirin 81 mg daily which she should remain on for life, atenolol 100 mg daily, valsartan 160 mg daily, atorvastatin 80 mg daily. She does report ongoing dizziness that has been occurring since she started Farxiga. She did discontinue this medication at the recommendation of her physician and since then her dizziness has improved but has not resolved. She reports his dizziness occurs more when she turns her head. She also reports when laying down at night on her left side this makes it worse. Question whether she has vertigo versus some sort of posterior circulation stroke. Her PCP did recommend her to have a CT of her head which she declined to have at that time. I did strongly encourage her to return to the PCPs office to see if she needed further work-up for possible vertigo versus stroke. She states she drinks enough water and does not think she is dehydrated. Assessment & Plan (04/19/2020 3:46 PM EST): Asymptomatic. Encouraged to remain as active as he can. Assessment & Plan (03/09/2019 11:36 AM EDT): Asymptomatic and active. No changes. Assessment & Plan (08/26/2018 4:29 PM EDT): No symptoms which were primarily dyspnea at the time of her event in 1995. Assessment & Plan (12/20/2017 10:56 AM EDT): Clinically doing very well. Her ECG today reveals a sinus rhythm at 65 and is a normal tracing without significant ST or T-wave changes. Resolved Problems Problem Noted Date Diagnosed Date Resolved Date Coronary artery disease 05/30/2017 07/0 11/2017 Mixed hyperlipidemia 05/30/2017 018 Encounters Date Type Department Care Team Description 01/12/2025 Refill [facility] Internal Medicine [address] [place] [address] Bandar Mendenhall MD Medication Refill 11/06/2024 Refill [facility] Internal Medicine [address] [place] [address] Bandar Mendenhall MD Medication Refill from Last 3 Months Immunizations Immunization Administration Dates Next Due COVID-19 (Pre-04/08) Pfizer Vaccine, Bivalent 12+ 03/01/2022 COVID-19 (Pre-04/08) Pfizer Vaccine, mRNA, PF 08/10/2020,07/20/2020 INFLUENZA, SPLIT VIRUS, TRIV ALENT W/ PRESERVATIVE IM 06/17/2019,05/25/2011 Influenza High-Dose Quadriva lent Preservative Free IM 02/13/2023,02/20/2022,02/13/2020 Influenza High-Dose Trivalen t Preservative Free IM 03/15/2024,03/12/2019,03/06/2018,03/29,02/21/2016,03/23/2015,04/08/2014 Influenza Quadrivalent Adjuv anted Preservative Free IM 03/07/2021 Influenza, Unspecified Formulation 05/01/2010, Pneumococcal conjugate PCV13 10/14/2014 Pneumococcal polysaccharide PPSV23 07/19/2011, RSV Vaccine (monovalent, adjuvanted) 04/12/2023 Td (adult) 5 Lf Tetanus Toxo id, PF, Adsorbed 09/15/2005 Tdap 09/27/2022,08/28/2012 Zoster live 03/20/2007 Zoster recombinant 08/29/2020,06/18/2020 Family History Medical History Relation Comments CV disease Mother Diabetes mellitus Sibling Alzheimer's disease Sister Dementia Sister Relation Status Comments Father Mother Sibling Alive Sister 80 y/o Blood tra nsfusion 5 units within past 2 months (03/12/23 Social History Tobacco Use Types Packs/Day Years Used Date Smoking Tobacco: Never Smokeless Tobacco: Never Tobacco Cessation:Counseling Given: Not Answered Alcohol Use Standard Drinks/Week Comments Yes 0 (1 standard drink = 0.6 oz pur e alcohol) socially while out for dinner Child or Family Care Answer Date Record ed Do you have problems with on e of the following making it difficult for you to work, study, or receive health care? No 04/10/2024 Education Answer Date Recorded Are you interested in more education? Not on gale e 10/12/2022 Are you concerned about learning? Not on file 10/12/2022 No 10/12/2022 No 10/12/2022 Food Answer Date Recorded Within the past 6 months we worried whether our food would run out before we got money to buy more. Never True 04/10/2024 Within the past 6 months the food we bought just didn't last and we didn't have enough money to get more. Never True Residential Stability Answer Date Recor ded What is your housing situation today? I have radha sofia 04/10/2024 How many times have you move d in the past 12 months? Zero (I did not move) 04/10/2024 Paying for Meds Answer Date Recorded Do you have trouble paying for medicines? No 04/10/2024 Paying Utility Bills Answer Date Record ed Do you have trouble paying your heating or elect ricity bill? No 04/10/2024 Transportation Answer Date Recorded Has the lack of transportati on kept you from medical appointments or from getting medications? No 04/10/2024 Digital Access Answer Date Recorded No 04/10/2024 Yes 04/10/2024 Do you have reliable internet access at home? I choose not to answer 04/10/2024 Do you have a device (e.g., phone, tablet, computer) with a working camera? Yes 04/10/2024 Intimate Partner Violence Answer Date R ecorded Denied Basic Needs Not on file 04/10/2024 In the past 12 months have y ou been in a relationship with a person who hurts, threatens, or tries to control you? No 04/10/2024 Worried food would run out Not on file 04/10 In the past 12 months have y ou been in a relationship with a person who hurts, threatens, or tries to control you? No 04/10/2024 Comments No Sex and Gender Information Value Date Recorded Sex Assigned at Female 10/26/2021 9:40 PM EDT Legal Sex Female 10:07 PM EDT Gender Identity Female 10/26/2021 9:40 PM EDT Sexual Orientation Straight 10/26/2021 9: 40 PM EDT Last Filed Vital Signs Vital Sign Reading Time Taken Comments Blood Pressure 138/67 09/25/2024 12:56 PM EDT Pulse 62 09/25/2024 12:56 PM EDT Temperature 36.3 C (97.4 F) 09/25/2024 12:56 PM EDT Respiratory Rate 12 09/25/2024 12:5 6 PM EDT Oxygen Saturation 98% 09/25/2024 12: 56 PM EDT Inhaled Oxygen Concentration - - Weight 83.4 kg (183 lb 12.8 oz) 025 12:56 PM EDT Height 160 cm (5' 2.99 ) 09/25/2024 12: 56 PM EDT Body Mass Index 32.57 09/25/2024 12:56 PM EDT Plan of Treatment Upcoming Encounters Date Type Department Care Team (Late st Contact Info) Description 02/17/2025 10:20 AM EDT Office Visit [facility] [address] [place] [address] 3rd Floor, [address] [place] [id number] Rock Tsai MD 22 [facility], [address] [place] [id number] 04/14/2025 1:00 PM EDT Office Visit [facility] [address] [place] [address] Bandar Mendenhall MD [address] [place] [address] Health Maintenance Due Date Last Done Comments COLOGUARD 1991 FOBT 1991 SIGMOIDOSCOPY 1991 VIRTUAL COLONOSCOPY 1991 FIT TEST 11/03/2021 11/03/2020 COVID-19 VACCINE ( season) 2024 03/15/2024, 03/08/2023, 03/01/2022, Additional history exists DIABETIC EYE EXAM 12/11/2024 12/12/2023, , 04/11/2020 HEMOGLOBIN A1C 03/18/2025 09/16/2024, 03/17, 09/24/2023, Additional history exists BLOOD PRESSURE 03/27/2025 09/25/2024 DEPRESSION SCREENING 04/10/2025 04/10/2024 CREATININE LEVEL 09/16/2025 09/16/2024, , 03/20/2024, Additional history exists POTASSIUM LEVEL 09/16/2025 09/16/2024, 03/17, 03/20/2024, Additional history exists COLONOSCOPY 02/07/2026 02/07/2021, 01/16, 10/22/2012 COLORECTAL CANCER SCREENING 02/07/2026 Adult Td,Tdap Booster 09/27/2032 09/27/2022 , 08/28/2012, 09/15/2005 PNEUMOCOCCAL VACCINES (50+ years) Completed 10/14/2014, 07/19/2011, 06/17/2000 OSTEOPOROSIS SCREENING INITIAL (ONE-TIME) Completed 10/25/2015 ZOSTER VACCINES Completed 08/29/2020, 07/2020, 03/20/2007 HEPATITIS C SCREENING Completed 02/06/2021 RSV VACCINE Completed 04/12/2023 SMOKING STATUS SCREENING (Once After 26 Yrs) Completed 09/25/2024 HEPATITIS A VACCINES Aged Out No long er eligible based on patient's age to complete this topic HIB VACCINES Aged Out No longer eligi ble based on patient's age to complete this topic MENINGOCOCCAL VACCINES (ACWY) Aged Out No longer eligible based on patient's age to complete this topic MENINGOCOCCAL VACCINES (B) Aged Out N o longer eligible based on patient's age to complete this topic Medical Devices Not on file Procedures Procedure Name Priority Date/Time Associated Diagnosis Comments HEMOGLOBIN A1C Routine 09/16/2024 7:55 AM EDT 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 COMPREHENSIVE METABOLIC PANEL Routine 09/16/2024 7:55 AM EDT 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 Essential hypertension DIABETES EYE EXAM FOR RESULT ENTRY ONLY Routine 12/12/2023 COLONOSCOPY FOR RESULT ENTRY ONLY Routine 02/07/2021 HEPATITIS C ANTIBODY, QUALITATIVE Routine 02/06/2021 2:27 PM EDT Need for hepatitis C screening test HC BLOOD OCCULT FECAL HGB DETER IA QUAL FECES 1-3 Routine 11/03/2020 10:56 AM EDT Screen for colon cancer OUTSIDE BONE DENSITY SCREENING Routine 10/25/2015 from Last 3 Months or Most Recently Relevant to Health Maintenance Results * (ABNORMAL) Comprehensive metabolic panel (09/16/2024 7:55 AM EDT) SODIUM 138 133 - 146 mmol/L [facility] POTASSIUM 4.4 3.3 - 5.1 mmol/L [facility] CHLORIDE 101 96 - 108 mmol/L [facility] CO2 25 21 - 35 mmol/L [facility] BUN 20(H) 6 - 19 mg/dL [facility] CREATININE 0.80 0.5 - 1.5 mg/dL [facility] GLUCOSE 204(H) 70 - 99 mg/dL [facility] ALBUMIN 4.2 3.9 - 4.8 g/dL [facility] TOTAL PROTEIN 6.7 6.5 - 8.0 g/dL [facility] CALCIUM 9.3 8.4 - 10.3 mg/dL [facility] ALKALINE PHOSPHATASE 55 39 - 117 U/L [facility] TOTAL BILIRUBIN 0.5 0.0 - 1.2 mg/dL [facility] AST 24 0 - 37 U/L [facility] ALT 22 0 - 40 U/L [facility] GLOBULIN 2.5 1 - 4.8 g/dL [facility] EGFR 75 >59 mL/min/1.[address] [facility] Comment:Estimated glomerular filtration rate calculated using the CKD-EPI refit equation. ANION GAP 16 10 - 20 mmol/L [facility] Blood 09/16/2024 7:55 AM EDT 09/16/2024 7:59 AM EDT us Bandar Mendenhall MD LAB BLOOD ORDERABLES Final Re sult [facility] [address] [place] [address] * (ABNORMAL) Hemoglobin A1c (09/16/2024 7:55 AM EDT) HEMOGLOBIN A1C 7.4(H) 4.3 - 5.8 % [facility] Blood 09/16/2024 7:55 AM EDT 09/16/2024 7:59 AM EDT us Bandar Mendenhall MD LAB BLOOD ORDERABLES Final Re sult Performing Organization Address City/[facility]/ZIP Co de Phone Number [address] [phone] * HM DIABETES EYE EXAM FOR RESULT ENTRY ONLY (12/12/2023) HM EYE EXAM in media-Dr. Serrano Historical Provider HEALTH MAINTENANCE Final Result * HM COLONOSCOPY FOR RESULT ENTRY ONLY (02/07/2021) Historical Provider HEALTH MAINTENANCE Edited Result - Final * Hepatitis C antibody, qualitative (02/06/2021 2:27 PM EDT) HCV NON-REACTIV E NON-REACTI VE [facility] Blood 02/06/2021 2:27 PM EDT 02/06/2021 2:29 PM EDT Bandar Mendenhall MD LAB BLOOD ORDERABLES Final Re sult Performing Organization Address City/[facility]/ZIP Co de Phone Number [address] [address] * (ABNORMAL) Fecal immunochemical test x1 (FIT) (11/03/2020 10:56 AM EDT) Immuno Fecal Occult Positive(A ) Negative [facility] Stool (Stool) 11/03/2020 10: 56 AM EDT 11/03/2020 11:02 AM EDT Bandar Mendenhall MD BODY FLUIDS AND STOOLS ORDERA BLES Final Result Performing Organization Address City/[facility]/ZIP Co de Phone Number [place] [address] [place] [address] * OUTSIDE BONE DENSITY SCREENING (10/25/2015) BONE DENSITY SCREENING - EXTERNAL normal us Historical Provider HEALTH MAINTENANCE Edited Result - Final from Last 3 Months or Most Recently Relevant to Health Maintenance Insurance [employer] [employer] MEDICARE HMO REPLACEMENT Member Subscriber Plan / Payer (Ef fective 2017-Present) Name:Mary Kate Pillai Relation to Subscriber:Self Name:Mary Kate Pillai Payer ID:Not on file Type:Medicare Address: [place] [id number] [employer] Member Subscriber Plan / Payer ( fective 2017-Present) Name:Mary Kate Pillai Relation to Subscriber:Self Name:Mary Kate Pillai Payer ID:Not on file Type:Medicare Address: [place] [id number] Care Teams Long Term Care Social Worker Relationship Specialty Start Date End Date Bandar Mendenhall MD [address] [place] [id number] PCP - General 04/04/17 Hilaria Serrano MD 40 [facility] [address] [place] [address] Ophthalmology 01/28/20 Hakan Gr OD [address] [place] [id number] [email or web address] 06/27/20 Artis La MD [address] [place] [phone] Internal Medicine 07/31/21 Additional Source Comments The information contained in this document represents components of the legal health record. It is not the complete legal health record.[facility]
--- OUTSIDE RECORDS SUMMARY | 2025-01-26 12:56 | XMS_ITS | Patient Health Record ---
Author Organization [facility] Address [address] [place] [id number] Care Team Providers Care Corporate Counselor Name Role Phone Bandar Mendenhall MD Primary Care Provider Artis Pino Jr Unavailable [phone] Allergies Allergen (clinical drug ingredient) Drug/Non Drug Allergy documented on EMR Reaction Allergy Type Onset Date Status Bee Sting Unknown Allergy Active Reason For Referral No Information Medications Medication SIG (Take, Route, Frequency, Duration) Notes Start Date End Date Status Atenolol 100mg qd Activ e Aspirin 81 MG 1 tablet Orally Once a day Active metFORMIN HCl 1000 MG 1 tablet with a me al Orally bid Active MiraLax (colon prep) 8.3 ounce ((238) grams mixed with Gatorade or Crystal Light orally begin at 5:00 p.m. the day before the procedure for 1 day 12/29/2020 Active glyBURIDE 5mg qd Active Atorvastatin Calcium 80 MG 1 tablet Oral ly Once a day Active Glimepiride 4 MG 2 tablets Orally Onc e a day Active Valsartan-hydroCHLOROthiazi de 160-25 MG 1 tablet Orally Once a day Active Farxiga 10 MG 1 tablet Orally Once a day Active Immunizations Vaccine Route Administration Date Status Comme nts Influenza Unknown 06/17/2019 Administered Social History Tobacco Use: Social History Observation Description Date Details (start date - stop date) Never Smoker NA - NA Tobacco Use/Smoking Question Answer Notes Patient is a nonsmoker Alcohol Screen Question Answer Notes Did you have a drink contain ing alcohol in the past year? Yes How often did you have a dri nk containing alcohol in the past year? Monthly or less (1 point) How many drinks did you have on a typical day when you were drinking in the past year? 1 or 2 drinks (0 point) How often did you have 6 or more drinks on one occasion in the past year? 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 (Z79.84) Active confirmed Plan Of Treatment Future Test Test Name Order Date COLONOSCOPY 10/03/2012 COLONOSCOPY 12/29/2020 Insurance Providers Payer Name Payer Address Payer Phone Subscriber Number Group Number Insured Name Patient Relationship to Insured Coverage Start Date Coverage End Date [facility] [address] [facility] [place]RAMER [phone] [id number] CHE PATEL Self - patient is the insured Medical (General) History Medical History History ICD Code Diabetes mellitus type 2 Coronary artery disease/history of [place] Hypertension Surgical History Surgery Date(Month/Year) cardiac stent placement in 1995 shoulder surgery 2005 cholecystectomy
== END 2025-01-26 12:02 | disposition home or self-care (01) ==
LOC: HO.MAMMO 12:01
PROVIDERS: PCP Internal Medicine; Visit Provider Internal Medicine
DX: Z12.31 Encounter for screening mammogram for malignant neoplasm of breast (principal)
CPT/HCPCS: 77063; 77067

== ENCOUNTER → 2025-01-26 12:30 | Outpatient (BNV) | payer MEDICARE, SELFPAY | PROVIDERS: PCP Internal Medicine; Visit Provider Radiology Body Imaging | DX: Z12.31 Encounter for screening mammogram for malignant neoplasm of breast (principal) | CPT/HCPCS: 77063; 77067 ==